=== PATIENT | male | born 1955 | race Caucasian/White ===

== ENCOUNTER 2017-04-29 08:44 | Day surgery (SDC) | payer OTHER ==
[~2017-04-29] VITALS: Ht 180.3 cm; Wt 111.1 kg
[2017-04-29 09:25] VITALS: BP 119/82
[2017-04-29] MEDS ORDERED: NORCO 5/3251 TABLET PO (11:54)
[2017-04-29 12:49] VITALS: BP 100/69
[2017-04-29 13:55] VITALS: BP 122/71
== END 2017-04-29 14:00 | disposition home or self-care (01) ==
LOC: SDC 08:44
PROC: 0KBT0ZX Excision of Left Lower Leg Muscle, Open Approach, Diagnostic (ICD-10-PCS; principal; 2017-04-29)
DX: M62.81 Muscle weakness (generalized) (principal); G47.30 Sleep apnea, unspecified; Z82.49 Family history of ischemic heart disease and other diseases of the circulatory system; Z80.42 Family history of malignant neoplasm of prostate; Z82.0 Family history of epilepsy and other diseases of the nervous system; E66.9 Obesity, unspecified; Z68.34 Body mass index [BMI] 34.0-34.9, adult
CPT/HCPCS: J0690; J2405; J3010; S0020